=== PATIENT | male | born 1990 | race Caucasian/White ===

== ENCOUNTER 2018-10-24 15:18 | Emergency (ER) | payer BC, OTHER ==
--- NOTE | 2018-10-24 15:52 | EDPHY ---
H & P Time Seen by Provider: 10/24/18 15:40 HPI/ROS: CHIEF COMPLAINT: Concerns over possible carbon monoxide exposure HISTORY OF PRESENT ILLNESS: 28-year-old male generally healthy, positive marijuana smoking, no tobacco smoking history, concerned that he may have been exposed to carbon accident his home. Notes that the carbon monoxide alarms have not been working for the past 1 week, numerous housemates have been reporting fatigue and dizziness when they are at home and he reports similar when he has at home. The landlord was contacted and is in the process of getting new carbon monoxide alarms. REVIEW OF SYSTEMS: 10 systems reviewed and negative with the exception of the elements mentioned in the history of present illness PAST MEDICAL & SURGICAL HISTORY: No pertinent medical or surgical history SOCIAL HISTORY:Recently quit smoking marijuana. No tobacco abuse. PHYSICAL EXAM (Prior to examination, patient consented to physical exam, hands were washed and my usual and customary physical exam procedures followed) 1) GENERAL: Well-developed, well-nourished, alert and oriented. Appears to be in no acute distress. 2) HEAD: Normocephalic, atraumatic 3) HEENT: Pupils equal, round, reactive to light bilaterally. Sclera anicteric. Nasopharynx, oropharynx, clear, no lesions. Moist Mucous membranes. Normal coloration to lips. Ears bilaterally with normal tympanic membranes. 4) NECK: Full range of motion, no meningeal signs. 5) LUNGS: Clear auscultation bilaterally, no wheezes, no rhonchi, no retractions. 6) HEART: Regular rate and rhythm, no murmur, no heave, no gallop. 7) ABDOMEN: No guarding, no rebound, no focal tenderness, negative McBurney's, negative Sheffield's, negative Rovsing's, negative peritoneal sign, 8) MUSCULOSKELETAL: Moving all extremities, no focal areas of tenderness, no obvious trauma. No peripheral edema or discoloration. 9) BACK: No CVA tenderness, no midline vertebral tenderness, no fluctuance, no step-off, no obvious trauma, no visual or palpable abnormality. 10) SKIN: No rash, no petechiae. 11) Psychiatric: Patient is oriented X 3, there is no agitation. DIFFERENTIAL DIAGNOSIS: In no particular order including but not limited to acute carbon monoxide exposure, subacute carbon monoxide exposure, dizziness Smoking Status: Former smoker Constitutional: Initial Vital Signs Temperature (C) 36.8 C 10/24/18 15:19 Heart Rate 70 10/24/18 15:19 Respiratory Rate 16 10/24/18 15:19 Blood Pressure 168/89 H 10/24/18 15:19 O2 Sat (%) 97 10/24/18 15:19 O2 Delivery Mode Room Air Allergies/Adverse Reactions: No Known Allergies Allergy (Unverified 10/24/18 15:25) Home Medications: Medication Instructions Recorded Ranitidine HCl [Heartburn Relief] 75 mg PO 10/24/18 MDM/Departure - [facility] ED Course/Re-evaluation: 4:09 p.m. Re-evaluation. Carboxyhemoglobin is negative. Recommend he by a carbon monoxide alarm before returning to his residence. He feels comfortable being discharged. Given my usual and customary carbon monoxide precautions instructions. Care of patient under supervision of secondary supervising physician Dr Anderson with whom I discussed case. - Depart Disposition: Home, Routine, Self-Care Clinical Impression: Carbon monoxide exposure Condition: Good Instructions: Carbon Monoxide Poisoning (ED) Additional Instructions: Your carbon monoxide levels are normal. Please get a carbon monoxide alarm before you spend any time at your residence Referrals: Ga Lanier DO [Doctor of Osteopathy] - As per Instructions
[2018-10-24 16:23] VITALS: BP 139/74
== END 2018-10-24 16:23 | disposition home or self-care (01) ==
DX: T58.91XA Toxic effect of carbon monoxide from unspecified source, accidental (unintentional), initial encounter (principal)